=== PATIENT | female | born 1975 | race Caucasian/White ===

== ENCOUNTER → 2023-02-12 14:19 | Outpatient (CLI) | payer OTHER, SELFPAY | PROVIDERS: Referring Provider Physician Assistant; Visit Provider Physician Assistant | DX: L71.8 Other rosacea (principal) | CPT/HCPCS: 36415; 86038 ==

== ENCOUNTER → 2025-02-01 16:00 | Outpatient (CLI) | payer OTHER, SELFPAY ==
--- NOTE | 2025-02-01 16:01 | DI.MRI.S_ITS ---
PROCEDURE: MR LUMBAR SPINE WO CON INDICATIONS: sciatica lft side TECHNIQUE: Noncontrast sagittal T1 spin echo and T2 fast echo, sagittal STIR, and T2 fast spin echo through the lumbar spine. In cases with scoliosis, additional coronal T2 fast spin echo may be performed. COMPARISON: None. FINDINGS: Image quality: Excellent. Alignment and Curvature: Grade 1 anterolisthesis L4 on five. Otherwise normal bone alignment. Bone Marrow: Vertebral body marrow signal is normal. Mild edema at the left L4-5 facet joint. Spinal Cord: Conus medullaris terminates at the L1 level. Visualized cord demonstrates normal signal and size. Paraspinous Soft Tissues: No paravertebral masses. T12-L1: Normal appearance. L1-L2: Normal appearance. L2-L3: Normal disc. Mild facet arthropathy bilaterally. L3-L4: Mild disc height loss and desiccation. Minimal circumferential disc bulge. Mild facet arthropathy. Mild right foraminal stenosis. L4-L5: Disc desiccation and mild disc height loss. Uncovering the posterior disc as well as slight disc protrusion. Pronounced bilateral facet arthropathy. Ligamentum flavum hypertrophy. Together these findings cause of moderate central canal stenosis. There is possibly an osteophyte ingrowth chain on the nerve roots in the right dorsal canal moderate bilateral foraminal stenosis, right worse than left. L5-S1: Broad-based mild left paracentral and foraminal disc protrusion. Disc material extrudes cranially from the left foraminal disc and narrows the left neural foramen. No significant central canal or right foraminal stenosis. IMPRESSION: Focal left foraminal disc herniation at the L5-S1 level likely effects the left L5 nerve root, potentially causing patient's symptoms. There is grade 1 anterolisthesis and severe facet arthropathy at L4-5 with edema at the left facet joint. This could also be symptomatic. Dictated by: Penelope Wong M.D. on 02/01/2025 at 18:09 Approved by: Penelope Wong M.D. on 02/01/2025 at 18:19
== END ==
PROVIDERS: Referring Provider Family Medicine; Visit Provider Family Medicine
DX: M51.17 Intervertebral disc disorders with radiculopathy, lumbosacral region (principal); M47.26 Other spondylosis with radiculopathy, lumbar region; M43.16 Spondylolisthesis, lumbar region; M54.50 Low back pain, unspecified
CPT/HCPCS: 72148

== ENCOUNTER 2025-02-01 17:58 | Emergency (ER) | payer OTHER, SELFPAY ==
[2025-02-01] VITALS (11 sets, daily range): BP systolic 99–131; BP diastolic 64–93; PULSE 70–108; RESP 20; TEMP 36.6; O2SAT 93–100; BMI 29.0
[2025-02-01] MEDS: MORPHINE 4 MG/ML INJ 10 MG IM (18:40)
--- NOTE | 2025-02-01 21:39 | ED.BACK ---
HPI - Back Pain/Injury General Chief Complaint: Back Pain/Injury Stated Complaint: pain in legs down leg going numb sent from Imaging Time Seen by Provider: 02/01/25 18:33 History of Present Illness HPI Narrative: 49-year-old woman with history of back pain seen by her primary care physician went to physical therapy last week and has been having progressive symptoms. She had an MRI today and after lying flat symptoms have progressively worsened to point that her pain is uncontrolled with oxycodone methocarbamol and lorazepam she is brought to the emergency department from MRI scanning due to level of pain and inability to walk. With further questioning, she has chronic low back pain that she manages fairly well, in November she was lifting a box with a twist and turn exacerbated her chronic pain. One-week ago she was seen by a chiropractor who does deep physical therapy techniques no direct manipulation after the appointment with that practitioner the patient was barely able to walk out of the exam room her entire left leg was numb with increasing weakness and her pain was dramatically worse. Over the week she continues to have significant paresthesias along the lateral posterior aspect of the left leg foot and toes. She has weakness with dorsiflexion and describe significant footdrop. It is unclear if she also has some upper thigh weakness as the pain is overriding. She had an MRI for further evaluation today and after the MRI was unable to get off the table and brought to the emergency department. Pain regimen at home has included Robaxin, diazepam, recent prednisone burst this week which was not effective, ibuprofen, Tylenol, oral Toradol, minimal Percocet as it makes her vomit and she has not found that it is effective Related Data Previous Rx's ?Medication ?Instructions ?Recorded methocarbamol 750 mg tablet 750 mg PO Q8H PRN spasm #30 tabs 02/02/25 methylprednisolone 4 mg tablets in See Rx Instructions PO .COMPLEX 02/02/25 a dose pack (Medrol (Nikhil)) #21 ea oxycodone 5 mg tablet 5 mg PO Q6H PRN pain #20 tabs 02/02/25 promethazine 25 mg tablet 25 mg PO TID PRN nausea and 02/02/25 vomiting #30 tabs Allergies Allergy/AdvReac Type Severity Reaction Status Date / Time No Known Allergies Allergy Verified 02/01/25 18:11 Review of Systems Review of Systems Narrative: Pertinent positive and negative findings as per HPI Patient History Social History Smoking Status: Never smoker Smoking Status: Never smoker Exam Initial Vital Signs Initial Vital Signs: Vital Signs Temperature 98 F 02/01/25 18:10 Pulse Rate 108 H 02/01/25 18:10 Respiratory Rate 20 02/01/25 18:10 Blood Pressure 131/79 02/01/25 18:10 Pulse Oximetry 99 02/01/25 18:10 Oxygen Delivery Method Room Air 02/01/25 18:10 General: Slightly groggy and distracted(she has had multiple sedating medications) difficult finding a comfortable position, is able to cooperate fully with the exam Respiratory: Able to speak in full sentences, no obvious respiratory distress Skin: No obvious rashes, warm and dry Spine: No point tenderness along the lumbar spine are in the pelvis. She states that standing straight causes severe pain. She is able to do a modified straight leg raise. Neurologic: Paresthesia described as thick cotton over her skin along the lateral aspect of the left thigh left calf entire foot to the toes. Dorsiflexion is weak on the left side. Psych: Significant pain Course Orders Ordered: Discontinued Medications Dexamethasone (Dexamethasone 10 Mg/Ml Vial) 10 mg IV NOW ONE Stop: 02/01/25 22:49 Ketamine HCl (Ketamine 500 Mg/5 Ml Inj) 8 mg IV NOW ONE Stop: 02/01/25 22:11 Last Admin: 02/01/25 22:46 Dose: 8 mg Documented By: HECTOR Ketorolac Tromethamine (Ketorolac 30 Mg/Ml Vial) 15 mg IV NOW ONE Stop: 02/01/25 22:11 Last Admin: 02/01/25 22:43 Dose: 15 mg Documented By: HECTOR Morphine Sulfate (Morphine 4 Mg/Ml Inj) 10 mg IM NOW ONE Stop: 02/01/25 18:35 Last Admin: 02/01/25 18:40 Dose: 10 mg Documented By: VIC Vital Signs Vital signs: Vital Signs - 8 hr 02/01/25 18:10 02/01/25 19:18 02/01/25 19:30 Temperature 98 F Pulse Rate 108 H 85 Respiratory Rate 20 Blood Pressure 131/79 99/69 Pulse Oximetry 99 98 Oxygen Delivery Method Room Air 02/01/25 19:30 02/01/25 20:00 02/01/25 20:00 Temperature Pulse Rate 83 83 Respiratory Rate Blood Pressure 105/64 Pulse Oximetry 98 97 Oxygen Delivery Method 02/01/25 21:49 02/01/25 22:00 02/01/25 22:00 Temperature Pulse Rate 80 84 Respiratory Rate Blood Pressure 126/93 H Pulse Oximetry 99 99 Oxygen Delivery Method 02/01/25 22:22 02/01/25 22:22 02/01/25 22:30 Temperature Pulse Rate 74 Respiratory Rate Blood Pressure 113/65 123/70 Pulse Oximetry 93 Oxygen Delivery Method 02/01/25 22:30 02/01/25 23:00 02/01/25 23:00 Temperature Pulse Rate 70 81 Respiratory Rate Blood Pressure 115/79 Pulse Oximetry 97 100 Oxygen Delivery Method MDM - Back Pain/Injury Imaging Data Lumbar spine MRI: Radiologist's Impression: PROCEDURE: MR LUMBAR SPINE WO CON INDICATIONS: sciatica lft side TECHNIQUE: Noncontrast sagittal T1 spin echo and T2 fast echo, sagittal STIR, and T2 fast spin echo through the lumbar spine. In cases with scoliosis, additional coronal T2 fast spin echo may be performed. COMPARISON: None. FINDINGS: Image quality: Excellent. Alignment and Curvature: Grade 1 anterolisthesis L4 on five. Otherwise normal bone alignment. Bone Marrow: Vertebral body marrow signal is normal. Mild edema at the left L4-5 facet joint. Spinal Cord: Conus medullaris terminates at the L1 level. Visualized cord demonstrates normal signal and size. Paraspinous Soft Tissues: No paravertebral masses. T12-L1: Normal appearance. L1-L2: Normal appearance. L2-L3: Normal disc. Mild facet arthropathy bilaterally. L3-L4: Mild disc height loss and desiccation. Minimal circumferential disc bulge. Mild facet arthropathy. Mild right foraminal stenosis. L4-L5: Disc desiccation and mild disc height loss. Uncovering the posterior disc as well as slight disc protrusion. Pronounced bilateral facet arthropathy. Ligamentum flavum hypertrophy. Together these findings cause of moderate central canal stenosis. There is possibly an osteophyte ingrowth chain on the nerve roots in the right dorsal canal moderate bilateral foraminal stenosis, right worse than left. L5-S1: Broad-based mild left paracentral and foraminal disc protrusion. Disc material extrudes cranially from the left foraminal disc and narrows the left neural foramen. No significant central canal or right foraminal stenosis. IMPRESSION: Focal left foraminal disc herniation at the L5-S1 level likely effects the left L5 nerve root, potentially causing patient's symptoms. There is grade 1 anterolisthesis and severe facet arthropathy at L4-5 with edema at the left facet joint. This could also be symptomatic. Dictated by: Penelope Wong M.D. on 02/01/2025 at 18:09 [facility] Narrative Medical decision making narrative: CC: Unable to get off MRI table secondary to pain and weakness after lumbar spine scan done today Complicating co-morbidities: Chronic low back pain Data collected from: patient, Social determinants of health that may influence the patients condition: They [place] on [place] Differential considered: Severe pain, ruptured disc, pathologic fracture, epidural hematoma or abscess Exam documented above, pertinent findings include: Patient is in significant pain and exam is a bit more challenging. In addition to dramatic pain with any type of movement she does have paresthesia that is becoming more dense per her description over the last week in the lateral aspect of the left leg and increasing difficulty with dorsiflexion to the point that she has footdrop when she is to walk all progressing over the last week Lab Test results independently reviewed as above. Pertinent findings: Independently reviewed EKG: Imaging studies independently reviewed: From MRI done earlier today, appears the majority of her pathology includes L4-5 and L5-S1: L4-L5: Disc desiccation and mild disc height loss. Uncovering the posterior disc as well as slight disc protrusion. Pronounced bilateral facet arthropathy. Ligamentum flavum hypertrophy. Together these findings cause of moderate central canal stenosis. There is possibly an osteophyte ingrowth chain on the nerve roots in the right dorsal canal moderate bilateral foraminal stenosis, right worse than left. L5-S1: Broad-based mild left paracentral and foraminal disc protrusion. Disc material extrudes cranially from the left foraminal disc and narrows the left neural foramen. No significant central canal or right foraminal stenosis. Consultations: MRI we will be sent down to [facility] for review by their spinal team. Question: With a progressive weakness is this an acute management needs to be transferred tonight issue or can we continue to help with her intractable pain and arrange for outpatient follow up MRI is reviewed in real-time with Dr Pool, spine service at [facility]. His recommendation was dexamethasone, Medrol Dosepak, ask the patient to call his patient coordinator, Doretha at [phone] to arrange for follow up at least by Thursday and if symptoms are worsening as soon as Thursday. Treatments: 10 mg of IM morphine on arrival, IV subdissociative doses of ketamine and Toradol Discussion: 49-year-old woman with history of chronic back pain severe and rather dramatic exacerbation one-week ago after a chiropractic treatment now with severe left radicular pain increasing weakness in the left leg and developing left footdrop. MRI does suggest bulging disc pressing on a a foramen which likely is the source of her pain. There was no evidence of cauda equina syndrome. Have arranged for acute outpatient spine consultation. Findings reviewed with the patient in detail. We discussed pain control options. Recommended ibuprofen over oral Toradol, similar efficacy and Toradol has a much higher risk for GI bleeding. Based on Dr. Chao's recommendation, a Medrol Dosepak, patient has had luck with Phenergan for nausea before would like a refill of that. We will give her prescription for oxycodone, she is somewhat reluctant to use this her will be dispensing only for severe pain, Robaxin has been quite helpful in this will be refilled as well. At this point there was no indication for hospitalization she is safe for discharge Discharge Plan Departure Patient Disposition: Home Clinical Impression: Disc herniation, Acute back pain with radiculopathy Instructions: DI for Back Pain With Sciatica Activity Restrictions/Additional Instructions: I am sorry that you are suffering with this acute back pain radiating down your leg with associated leg weakness. Your MRI does show a bulging disc that is pushing on the foramen, the whole that the nerve comes out of as it is going to your lower leg. I have reviewed the MRI with Dr. Chao, surgeon working with the spine service at [facility]. He is recommended a dose of steroid and close outpatient follow up. Please contact his patient coordinator, Doretha, at [phone]. This is a direct line. She will help arrange an appointment for either Thursday or Thursday for you to talk with Dr. Chao.. He has seen your MRI this evening. In the meantime, for pain control continuing to use a mix of medications we will be appropriate. I have given you a prescription for a Medrol Dosepak to help with the acute inflammation You can continue to use the Robaxin for muscle spasm, this prescriptions refilled I would recommend 400 mg of ibuprofen at 325 mg Tylenol simultaneously rather than oral Toradol. Similar pain control and far less risk of GI bleeding I have given you a small prescription of oxycodone for severe pain. Narcotics can be helpful for acute pain but tend to not be helpful for chronic pain and you have already expressed your concern with continued narcotic use. Finally, I have given a prescription for Phenergan to use for nausea I wish you the best Prescriptions: New promethazine 25 mg tablet 25 mg PO TID PRN (Reason: nausea and vomiting) Qty: 30 0RF methocarbamol 750 mg tablet 750 mg PO Q8H PRN (Reason: spasm) Qty: 30 0RF methylprednisolone [Medrol (Nikhil)] 4 mg tablets,dose pack See Rx Instructions .ROUTE .COMPLEX Qty: 21 0RF Rx Instructions: orally per package directions oxycodone 5 mg tablet 5 mg PO Q6H PRN (Reason: pain) Qty: 20 0RF Stand Alone Forms: Patient Portal/API
[2025-02-01] MEDS: KETOROLAC 30 MG/ML VIAL 15 MG IV (22:43)
[2025-02-01] MEDS: KETAMINE 500 MG/5 ML INJ 8 MG IV (22:46)
--- NOTE | 2025-02-01 23:57 | PC.NURSE ---
Pt states she wishes to speak with doctor before admin of steroid. Dexamethasone held for now.
[2025-02-02] VITALS: BP 111/71; PULSE 87; O2SAT 98
[2025-02-02 00:30] VITALS: PULSE 72; O2SAT 98
[2025-02-02 00:31] VITALS: BP 111/68; PULSE 78; O2SAT 99
[2025-02-02] MEDS: DEXAMETHASONE 10 MG/ML VIAL IV (00:35)
[2025-02-02 01:00] VITALS: BP 98/66; PULSE 71; RESP 18; O2SAT 98
== END 2025-02-02 01:25 | disposition home or self-care (01) ==
PROVIDERS: Emergency Provider Emergency Medicine
DX: M51.16 Intervertebral disc disorders with radiculopathy, lumbar region (principal); R20.2 Paresthesia of skin; M51.17 Intervertebral disc disorders with radiculopathy, lumbosacral region; M47.26 Other spondylosis with radiculopathy, lumbar region; M43.16 Spondylolisthesis, lumbar region; M54.50 Low back pain, unspecified
CPT/HCPCS: 72148; 96372; 96374; 96375; 99284; J1100; J1885; J2270